=== PATIENT | female | born 1985 | race Caucasian/White ===

== ENCOUNTER 2017-10-16 14:32 | Emergency (ER) | payer OTHER ==
--- NOTE | 2017-10-16 14:38 | ED Physician Documentation ---
General Adult - HISTORIAN Historian: patient - HPI Stated Complaint: left elbow pain Chief Complaint: Upper Extremity Injury Onset: hours (8) Timing: still present Severity: mild Further Comments: yes (left elbow pain from a work incident. She states she was moving boxes at work ([employer]) and she has had pain in the elbow joint since. She did take Ibuprofen at 830am and she has had mild to no relief. She states the pain is approx 4-5 /10 when sitting but if she moves it is a 9/10 . She has no other complaints) - ROS CONST: no problems - PAST HX Past History: other (PCOS ) Surgeries/Procedures: cholecystectomy Immunizations: UTD Allergies/Adverse Reactions: Allergies Allergy/AdvReac Type Severity Reaction Status Date / Time No Known Allergies Allergy Verified 08/16/14 13:16 Home Medications: Ambulatory Orders Medication Instructions Recorded NK 08/16/14 - SOCIAL HX Smoking History: non-smoker Alcohol Use: none Drug Use: none - FAMILY HX Family History: No - VITAL SIGNS Vital Signs: Vital Signs Temp Pulse Resp BP Pulse Ox 145/70 08/16/14 15:52 - REVIEWED ASSESSMENTS Nursing Assessment Reviewed: Yes Vitals Reviewed: Yes Progress - Progress Progress: 1630: she is aware of results and plan and is agreeable DG ED Results Lab/Radiology - Radiology Radiology Impressions: Examination: Plain film left elbow History: LEFT ELBOW, PAIN IN LEFT ELBOW AFTER UNLOADING A TRUCK TODAY (Hx) Comparison exams: None provided Findings: 2 views of the elbow demonstrate normal cortical margins. No fracture. No dislocation. Radial head is within normal limits. No joint effusion Impression: No acute osseous abnormality. Electronically signed on Oct 16, 2017 4:33:38 PM CDT by: Tato العراقي General Adult Physical Exam - PHYSICAL EXAM GENERAL APPEARANCE: no distress EENT: eye inspection normal NECK: normal inspection RESPIRATORY: no resp distress, chest non-tender, breath sounds normal CVS: reg rate & rhythm, heart sounds normal, equal pulses, no murmur ABDOMEN: soft BACK: normal inspection SKIN: warm/dry, normal color EXTREMITIES: tenderness (left elbow with palpation or extension. Strength is normal. Sensation and pulses normal. Cap refill normal ) NEURO: oriented X3, CN's nml as tested, motor nml, sensation nml, mood/affect nml, cognition normal Discharge Clincal Impression: Left elbow pain Referrals: Primary Doctor,No [Primary Care Provider] - 2 Days Comments: 1. Ibuprofen 800 mg every 12 hours as needed for pain 2. medrol dose pack - as directed 3. Ice/heat 4. Sling for comfort 5. Follow up with PCP in 2- 4 days 6. Return to ER for any concerns Condition: Stable Disposition: 01 HOME, SELF-CARE Decision to Admit: NO Date of Decison to Admit: 10/16/17 Decision Time: 16:43
[2017-10-16] MEDS ORDERED: IBUPROFEN 200 MG TABLET PO ONE (16:36)
--- NOTE | 2017-10-16 19:09 | Diagnostic Imaging Report ---
LAMONT ERICKSON [facility] [id number] [facility] [address] [place], [place]. [address] Report Submission Date: Oct 16, 2017 4:33:38 PM CDT Patient Study Name: KAYLYN WHELAN Date: Oct 16, 2017 4:05:19 PM CDT Modality Type: DX Gender: F Description: UPPER EXTREMITY : 87 Institution: [facility] Physician: LAMONT ERICKSON Examination: Plain film left elbow History: LEFT ELBOW, PAIN IN LEFT ELBOW AFTER UNLOADING A TRUCK TODAY (Hx) Comparison exams: None provided Findings: 2 views of the elbow demonstrate normal cortical margins. No fracture. No dislocation. Radial head is within normal limits. No joint effusion Impression: No acute osseous abnormality. Electronically signed on Oct 16, 2017 4:33:38 PM CDT by: Tato PEARCE
[2017-10-16 19:36] VITALS: BP 138/72
[2017-10-17 06:34] LABS: CANNABINOIDS NEGATIVE ng/mL (< 50); METHYLENEDIOXYMETHAMPHETAMINE NEGATIVE ng/mL (<500)
== END 2017-10-16 17:00 | disposition home or self-care (01) ==
LOC: ED 14:32
DX: M25.522 Pain in left elbow (principal)
CPT/HCPCS: 73070; 80377; 81025; 99283; G0481